=== PATIENT | female | born 1950 | race Caucasian/White ===

== ENCOUNTER 2025-08-13 12:04 | Inpatient (IN) | payer OTHER, MEDICAID ==
[2025-08-13] VITALS (8 sets, daily range): BP systolic 84–165; BP diastolic 45–97; PULSE 69–91; RESP 18–20; TEMP 36.114–36.7; O2SAT 95–99
[~2025-08-13] VITALS: Ht 160 cm; Wt 68.5 kg
[2025-08-13 14:41] LABS: BASOPHILS % 1.0 % (0.0-2.0); EOSINOPHILS % 0.3 % (0.0-5.0); HEMATOCRIT. 37.7 % (36.0-48.0); HEMOGLOBIN. 12.4 g/dL (12.0-16.0); LYMPHOCYTES % 15.3 % (20.0-50.0); MEAN PLATELET VOLUME 8.0 fl (7.4-10.4); MONOCYTES % 6.0 % (2.0-8.0); NEUTROPHILS % 77.4 % (40.0-76.0); PLATELET 197 x1000/uL (130-400); RED BLOOD CELL COUNT 4.07 mill/uL (4.2-5.4); RED CELL DISTRIBUTION WIDTH 14.0 % (11.6-14.6)
[2025-08-13 14:49] LABS: UREA NITROGEN BLOOD 42.0 mg/dL (9-23)
[2025-08-13 14:59] LABS: CREATININE 6.5 mg/dL (0.6-1.0)
[2025-08-13] MEDS ORDERED: MAGNESIUM/ALUMINUM HYDROXIDE/SIMETHICONE 30ML UDC PO PRN (15:45)
[2025-08-13] MEDS ORDERED: ACETAMINOPHEN 325MG TABLET PO PRN (15:45)
[2025-08-13] MEDS ORDERED: DEXTROSE 50% WATER 50ML SYRINGE IV PRN (15:45)
[2025-08-13] MEDS ORDERED: ZOLPIDEM TARTRATE 5MG TABLET PO PRN (15:45)
[2025-08-13] MEDS ORDERED: NALOXONE HCL 0.4MG/ML VIAL IV PRN (16:00)
[2025-08-13] MEDS: BLOOD SUGAR DIAGNOSTIC STRIP TEST SCH (17:50)
[2025-08-13] MEDS: ENOXAPARIN 30MG/0.3ML SYR SUBCUT SCH (17:59)
[2025-08-13] MEDS: INSULIN LISPRO 100 UNITS/ML SUBCUT SCH (18:02)
[2025-08-13] MEDS: CLONIDINE 0.1MG TABLET PO PRN (21:01)
[2025-08-13] MEDS: HYDROCODONE/ACETAMINOPHEN 5/325MG TABLET PO PRN (21:04)
[2025-08-14] VITALS (9 sets, daily range): BP systolic 113–143; BP diastolic 45–59; PULSE 62–77; RESP 18–20; TEMP 35.7–36.7; O2SAT 97–100
[2025-08-14 06:25] LABS: UREA NITROGEN BLOOD 27.0 mg/dL (9-23)
[2025-08-14 06:41] LABS: CREATININE 4.3 mg/dL (0.6-1.0)
[2025-08-14 06:43] LABS: BASOPHILS % 0.4 % (0.0-2.0); EOSINOPHILS % 0.5 % (0.0-5.0); HEMATOCRIT. 32.2 % (36.0-48.0); HEMOGLOBIN. 10.5 g/dL (12.0-16.0); LYMPHOCYTES % 21.2 % (20.0-50.0); MEAN PLATELET VOLUME 8.5 fl (7.4-10.4); MONOCYTES % 10.7 % (2.0-8.0); NEUTROPHILS % 67.2 % (40.0-76.0); PLATELET 155 x1000/uL (130-400); RED BLOOD CELL COUNT 3.48 mill/uL (4.2-5.4); RED CELL DISTRIBUTION WIDTH 13.7 % (11.6-14.6)
[2025-08-14] MEDS: POTASSIUM CHLORIDE 20MEQ TABLET SR PO NR (09:19)
[2025-08-14] MEDS: PANTOPRAZOLE SODIUM 40 MG/VIAL IV SCH (09:55)
[2025-08-14 15:29] LABS: *AMPHETAMINES SCREEN URINE NEGATIVE (NEGATIVE); *BARBITURATES SCREEN URINE NEGATIVE (NEGATIVE); *BENZODIAZEPINES SCREEN URINE NEGATIVE (NEGATIVE); *COCAINE SCREEN URINE NEGATIVE (NEGATIVE); CANNABINOID URINE SCREEN NEGATIVE (NEGATIVE); ECSTASY MDMA SCREEN URINE NEGATIVE (NEGATIVE); METHADONE URINE SCREEN NEGATIVE (NEGATIVE); OPIATES URINE SCREEN NEGATIVE (NEGATIVE); PHENCYCLIDINE URINE SCREEN NEGATIVE (NEGATIVE)
[2025-08-15] VITALS (11 sets, daily range): BP systolic 100–141; BP diastolic 48–67; PULSE 68–84; RESP 18; TEMP 36.3918–36.7; O2SAT 97–100
[2025-08-15 07:49] LABS: BASOPHILS % 0.3 % (0.0-2.0); EOSINOPHILS % 1.7 % (0.0-5.0); HEMATOCRIT. 32.0 % (36.0-48.0); HEMOGLOBIN. 10.6 g/dL (12.0-16.0); LYMPHOCYTES % 20.8 % (20.0-50.0); MEAN PLATELET VOLUME 8.1 fl (7.4-10.4); MONOCYTES % 10.3 % (2.0-8.0); NEUTROPHILS % 66.9 % (40.0-76.0); PLATELET 157 x1000/uL (130-400); RED BLOOD CELL COUNT 3.48 mill/uL (4.2-5.4); RED CELL DISTRIBUTION WIDTH 13.8 % (11.6-14.6)
[2025-08-15 09:03] LABS: UREA NITROGEN BLOOD 38 mg/dL (9-23)
[2025-08-15 09:05] LABS: PHOSPHORUS 3.8 mg/dL (2.5-4.9)
[2025-08-15 09:56] LABS: CREATININE 5.7 mg/dL (0.6-1.0)
[2025-08-15] MEDS ORDERED: ATOR10TA MT (12:00)
[2025-08-15] MEDS ORDERED: SITA25TA3 MT (12:00)
[2025-08-15] MEDS: ASPIRIN 81MG TABLET PO SCH (13:11)
[2025-08-15] MEDS: AMIODARONE 200MG TABLET PO SCH (13:12)
[2025-08-15 17:15] LABS: CREATININE 4.3 mg/dL (0.6-1.0); UREA NITROGEN BLOOD 26.0 mg/dL (9-23)
[2025-08-15 17:17] LABS: TROPONIN I HIGH SENSITIVITY 12 ng/L (3.0-34)
[2025-08-15] MEDS: ATORVASTATIN CALCIUM 40MG TABLET PO SCH (20:12)
[2025-08-16] VITALS: BP 123/42; PULSE 75; RESP 18; TEMP 36.6; O2SAT 98
[2025-08-16 04:00] VITALS: BP 122/50; PULSE 78; RESP 18; TEMP 36.9; O2SAT 97
[2025-08-16 07:33] LABS: BASOPHILS % 0.3 % (0.0-2.0); EOSINOPHILS % 1.9 % (0.0-5.0); HEMATOCRIT. 32.6 % (36.0-48.0); HEMOGLOBIN. 10.7 g/dL (12.0-16.0); LYMPHOCYTES % 26.6 % (20.0-50.0); MEAN PLATELET VOLUME 8.1 fl (7.4-10.4); MONOCYTES % 11.3 % (2.0-8.0); NEUTROPHILS % 59.9 % (40.0-76.0); PLATELET 178 x1000/uL (130-400); RED BLOOD CELL COUNT 3.54 mill/uL (4.2-5.4); RED CELL DISTRIBUTION WIDTH 13.8 % (11.6-14.6)
[2025-08-16 07:45] LABS: CREATININE 4.9 mg/dL (0.6-1.0); UREA NITROGEN BLOOD 33.0 mg/dL (9-23)
[2025-08-16 08:00] VITALS: BP 139/52; PULSE 71; RESP 18; TEMP 36.6; O2SAT 98
[2025-08-16] MEDS ORDERED: VERAPAMIL HCL 2.5 MG/1 ML 2ML VIAL IV ONE (08:51)
[2025-08-16] MEDS ORDERED: LIDOCAINE HCL 1% 20ML VIAL ONE (08:51)
[2025-08-16] MEDS ORDERED: HEPARIN 1000 UNITS/ML 10ML ONE (08:51)
[2025-08-16] MEDS ORDERED: IODIXANOL 320MG/ML 100 ML BOTTLE IV ONE (08:52)
[2025-08-16 10:18] LABS: INR 0.9
[2025-08-16] MEDS ORDERED: FENTANYL CITRATE/PF 50MCG/ML 2ML VIAL ONE (10:30)
[2025-08-16] MEDS ORDERED: DIPHENHYDRAMINE 50MG/ML VIAL ONE (10:30)
[2025-08-16] MEDS ORDERED: MIDAZOLAM HCL 2 MG/2 ML VIAL ONE (10:30)
[2025-08-16] MEDS ORDERED: ATROPINE SULFATE 1MG/10ML SYR IV PRN (11:45)
[2025-08-16 12:00] VITALS: BP 167/77; PULSE 78; RESP 18; TEMP 36.6; O2SAT 95
[2025-08-16] MEDS ORDERED: LIP40 PO (12:41)
[2025-08-16] MEDS ORDERED: AMI2 PO (12:41)
[2025-08-16] MEDS ORDERED: ASPI-1160 PO (12:41)
[2025-08-16 16:00] VITALS: BP 142/70; PULSE 72; RESP 18; TEMP 36.6; O2SAT 97
[2025-08-16] MEDS: ACETAMINOPHEN 325MG TABLET PO PRN (17:38)
[2025-08-16 20:00] VITALS: BP 165/66; PULSE 72; RESP 18; TEMP 36.2; O2SAT 97
[2025-08-17] VITALS (11 sets, daily range): BP systolic 105–174; BP diastolic 49–77; PULSE 62–83; RESP 17–22; TEMP 35.9–36.9; O2SAT 95–100
[2025-08-17 07:55] LABS: UREA NITROGEN BLOOD 42.0 mg/dL (9-23)
[2025-08-17 08:04] LABS: BASOPHILS % 0.4 % (0.0-2.0); EOSINOPHILS % 1.9 % (0.0-5.0); HEMATOCRIT. 32.2 % (36.0-48.0); HEMOGLOBIN. 10.6 g/dL (12.0-16.0); LYMPHOCYTES % 25.5 % (20.0-50.0); MEAN PLATELET VOLUME 7.6 fl (7.4-10.4); MONOCYTES % 10.3 % (2.0-8.0); NEUTROPHILS % 61.9 % (40.0-76.0); PLATELET 182 x1000/uL (130-400); RED BLOOD CELL COUNT 3.46 mill/uL (4.2-5.4); RED CELL DISTRIBUTION WIDTH 13.5 % (11.6-14.6)
[2025-08-17 08:12] LABS: CREATININE 5.6 mg/dL (0.6-1.0)
[2025-08-17] MEDS: AMIODARONE 200MG TABLET PO SCH (09:22)
[2025-08-17] MEDS: ONDANSETRON HCL 4MG/2ML INJ IV PRN (21:18)
[2025-08-18] VITALS: BP 141/53; PULSE 68; RESP 18; TEMP 36.5; O2SAT 93
[2025-08-18 04:00] VITALS: BP 138/68; PULSE 76; RESP 20; TEMP 36.3; O2SAT 97
[2025-08-18 08:00] VITALS: BP 166/62; PULSE 19; RESP 19; TEMP 36.5; O2SAT 97
[2025-08-18 12:00] VITALS: BP 147/58; PULSE 76; RESP 19; TEMP 36.7; O2SAT 97
[2025-08-18 16:00] VITALS: BP 117/54; PULSE 62; RESP 18; TEMP 36.6; O2SAT 100
[2025-08-18 20:00] VITALS: BP 107/59; PULSE 65; RESP 18; TEMP 36.7; O2SAT 93
[2025-08-19] VITALS (9 sets, daily range): BP systolic 106–156; BP diastolic 52–84; PULSE 68–81; RESP 18–20; TEMP 36.3918–36.7; O2SAT 97–100
== END 2025-08-19 14:30 | disposition home or self-care (01) | DRG 286 ==
LOC: ER 12:04 → 8WST 15:26 → EDBEDREQ 15:28 → EDBEDREQTM 15:28 → ENRESERV 16:02
PROVIDERS: ADMIT Internal Medicine; ATTEND Internal Medicine
PROC: 5A1D70Z Performance of Urinary Filtration, Intermittent, Less than 6 Hours Per Day (ICD-10-PCS; 2025-08-13)
PROC: 5A1D70Z Performance of Urinary Filtration, Intermittent, Less than 6 Hours Per Day (ICD-10-PCS; 2025-08-15)
PROC: 4A023N7 Measurement of Cardiac Sampling and Pressure, Left Heart, Percutaneous Approach (ICD-10-PCS; principal; 2025-08-16)
PROC: B211YZZ Fluoroscopy of Multiple Coronary Arteries using Other Contrast (ICD-10-PCS; 2025-08-16)
PROC: 5A1D70Z Performance of Urinary Filtration, Intermittent, Less than 6 Hours Per Day (ICD-10-PCS; 2025-08-17)
PROC: 5A1D70Z Performance of Urinary Filtration, Intermittent, Less than 6 Hours Per Day (ICD-10-PCS; 2025-08-19)
DX: I13.2 Hypertensive heart and chronic kidney disease with heart failure and with stage 5 chronic kidney disease, or end stage renal disease (principal); N18.6 End stage renal disease; I47.20 Ventricular tachycardia, unspecified; I25.110 Atherosclerotic heart disease of native coronary artery with unstable angina pectoris; E87.6 Hypokalemia; R53.1 Weakness; E11.22 Type 2 diabetes mellitus with diabetic chronic kidney disease; D64.9 Anemia, unspecified; E11.65 Type 2 diabetes mellitus with hyperglycemia; I45.10 Unspecified right bundle-branch block; I50.9 Heart failure, unspecified; Z99.2 Dependence on renal dialysis
CPT/HCPCS: 36415; 71045; 80048; 80305; 82962; 83735; 84100; 84443; 84484; 85025; 90935; 93005; 93306; 93458; 93970; 97110; 97116; 97162; 97166; 99291; A4606; C1769; C1887; C1893; J1200; J1644; J1650; J1815; J2003; J2250; J2405; J2470; J3010; J3490; Q9967